=== PATIENT | male | born 1945 | race Hispanic/Latino ===

== ENCOUNTER → 2022-05-19 | Outpatient (CLI) | payer OTHER | END | disposition home or self-care (01) | LOC: RAH 09:37 | PROVIDERS: ATTEND Otolaryngology Plastic Surgery within the Head & Neck | DX: R13.10 Dysphagia, unspecified (principal); K21.9 Gastro-esophageal reflux disease without esophagitis | CPT/HCPCS: 74230; 92611 ==

== ENCOUNTER → 2022-07-01 | Outpatient (CLI) | payer OTHER | END | disposition home or self-care (01) | LOC: RAH 09:27 | PROVIDERS: ATTEND Otolaryngology Plastic Surgery within the Head & Neck | DX: R13.10 Dysphagia, unspecified (principal) | CPT/HCPCS: 74220 ==

== ENCOUNTER 2023-09-23 15:00 | Inpatient (IN) | payer OTHER ==
[~2023-09-23] VITALS: Ht 195.6 cm; Wt 91.6 kg
[2023-09-23 09:19] LABS: ADD UA MICROSCOPIC NO; APPEARANCE,URINE CLEAR (CLEAR); BILIRUBIN,URINE NEGATIVE (NEGATIVE); COLOR,URINE LIGHT-YELLOW (YELLOW); GLUCOSE, URINE (UA) NEGATIVE (NEGATIVE); KETONES,URINE NEGATIVE (NEGATIVE); LEUKOCYTE ESTERASE ,URINE NEGATIVE Leu/uL (NEGATIVE); NITRATE,URINE NEGATIVE (NEGATIVE); OCCULT BLOOD,URINE NEGATIVE (NEGATIVE); PROTEIN,URINE NEGATIVE (NEGATIVE); UROBILINOGEN,URINE 0.2 mg/dL (0.2-1.0)
[2023-09-23 09:30] LABS: INR 1.08 (0.85-1.15); PROTHROMBIN TIME 12.5 SEC (9.6-11.6)
[2023-09-23 09:32] LABS: PARTIAL THROMBOPLASTIN TIME 29.2 SEC (26.3-35.5)
[2023-09-23 10:19] VITALS: BP 138/80; PULSE 56; RESP 18
[~2023-09-23 15:00] MED LIST: ATOR40TA69 PO; TAMS-1 PO
[2023-09-26] VITALS (25 sets, daily range): BP systolic 90–147; BP diastolic 57–98; PULSE 48–71; RESP 14–20; O2SAT 95–98
[2023-09-26] MEDS ORDERED: TRANEXAMIC ACID 1000MG/10ML ONE ×2 (06:38→08:00)
[2023-09-26] MEDS ORDERED: ROPIVACAINE 0.5% 5MG/ML 30ML IJ ONE ×2 (06:38→07:13)
[2023-09-26] MEDS ORDERED: KETOROLAC 15MG/ML VIAL (15MG/ML) ONE ×2 (06:38→09:56)
[2023-09-26] MEDS ORDERED: KETOROLAC 30MG VIAL (30MG/ML) ONE (06:39)
[2023-09-26] MEDS ORDERED: LACTATED RINGERS 1000ML 1,000 ML IV ONE (06:52)
[2023-09-26] MEDS ORDERED: PROPOFOL 10 MG/ML 20ML VIAL IV ONE (07:10)
[2023-09-26] MEDS ORDERED: FENTANYL CITRATE PF 50 MCG/1 ML 2ML VIAL ONE ×2 (07:10→09:41)
[2023-09-26] MEDS ORDERED: MIDAZOLAM HCL 1 MG/ML 2ML VIAL ONE (07:11)
[2023-09-26] MEDS ORDERED: ONDANSETRON 4MG INJ ONE (07:11)
[2023-09-26] MEDS ORDERED: CEFAZOLIN SODIUM 2 GM VIAL ONE (07:11)
[2023-09-26] MEDS ORDERED: ROCURONIUM 10MG/1ML SYR 10 MG/ML ML ONE ×2 (07:11→08:16)
[2023-09-26] MEDS ORDERED: GLYCOPYRROLATE 1 MG/5 ML SYRINGE ONE (07:51)
[2023-09-26] MEDS ORDERED: MEPERIDINE-PF 25 MG/ML SYG ONE ×2 (09:27→10:03)
[2023-09-26] MEDS ORDERED: CYCLOBENZAPRINE HCL 10 MG TABLET PO PRN (09:30)
[2023-09-26] MEDS ORDERED: KCL 20 MEQ ERTAB PO PRN (09:30)
[2023-09-26] MEDS ORDERED: DiphenhydrAMINE HCL 50 MG/ML VIAL IVP PRN (09:30)
[2023-09-26] MEDS ORDERED: POTASSIUM CHLORIDE 10% ELIXIR 20 MEQ/15 ML UDCUP PO PRN (09:30)
[2023-09-26] MEDS ORDERED: POTASSIUM CHLORIDE 20MEQ/100ML 100 ML IV PRN (09:30)
[2023-09-26] MEDS ORDERED: ONDANSETRON 4MG INJ IVP PRN (09:30)
[2023-09-26] MEDS ORDERED: FERROUS FUMARATE 324 MG TABLET PO PRN (09:30)
[2023-09-26] MEDS ORDERED: CALCIUM CARB 500MG PO PRN (09:30)
[2023-09-26] MEDS ORDERED: NEOSTIGMINE 5MG/5ML SYR IV ONE (09:39)
[2023-09-26] MEDS: KETOROLAC 15MG/ML VIAL (15MG/ML) IV SCH ×2 (10:11→17:45)
[2023-09-26] MEDS: GABAPENTIN 100 MG CAPSULE PO SCH ×2 (13:45→19:44)
[2023-09-26] MEDS: HYDROCODONE/ACETAMINOPHEN 5/325 MG TAB PO PRN (13:49)
[2023-09-26] MEDS: CEFAZOLIN SODIUM 2 GM VIAL IVPB SCH ×2 (15:36→22:15)
[2023-09-26] MEDS: 0.9%NACL 1000ML 1,000 ML IV SCH ×2 (19:30→19:46)
[2023-09-26] MEDS: ATORVASTATIN 20 MG TABLET PO SCH (19:44)
[2023-09-26] MEDS: TAMSULOSIN HCL 0.4 MG CAP.ER.24H PO SCH (19:44)
[2023-09-26] MEDS: DOCUSATE SODIUM 100 MG CAP PO SCH (19:44)
[2023-09-27] VITALS (9 sets, daily range): BP systolic 103–138; BP diastolic 66–79; PULSE 65–74; RESP 14–20; O2SAT 94–96
[2023-09-27] MEDS: KETOROLAC 15MG/ML VIAL (15MG/ML) IV SCH (00:57)
[2023-09-27 05:39] LABS: HEMATOCRIT 36.5 % (42-54); MEAN CORPUSCULAR HEMOGLOBIN 30.9 pg (27.0-33.0); MEAN CORPUSCULAR HGB CONC 34.5 g/dL (32.0-36.0); MEAN CORPUSCULAR VOLUME 89.5 fL (79-99); RED BLOOD CELL COUNT(AUTO) 4.08 MIL/uL (4.50-6.20); RED CELL DISTRIBUTION WIDTH 12.8 % (11.0-15.5); WHITE BLOOD COUNT (AUTO) 7.9 K/uL (4.8-10.8)
[2023-09-27 05:55] LABS: CREATININE 1.4 mg/dL (0.5-1.5)
[2023-09-27] MEDS: TRAMADOL HCL 50 MG TABLET PO PRN ×2 (06:05→20:18)
[2023-09-27] MEDS: POLYETHYLENE GLYCOL 3350 17 GM POWD.PACK PO SCH (08:55)
[2023-09-27] MEDS: GABAPENTIN 100 MG CAPSULE PO SCH ×3 (08:55→20:18)
[2023-09-27] MEDS: DOCUSATE SODIUM 100 MG CAP PO SCH ×2 (08:55→20:17)
[2023-09-27] MEDS: HYDROCODONE/ACETAMINOPHEN 5/325 MG TAB PO PRN ×3 (08:55→23:07)
[2023-09-27] MEDS: ASPIRIN 325MG EC TAB PO SCH (08:55)
[2023-09-27] MEDS ORDERED: KETOROLAC 15MG/ML VIAL (15MG/ML) IV PRN (09:30)
[2023-09-27] MEDS: ATORVASTATIN 20 MG TABLET PO SCH (20:12)
[2023-09-27] MEDS: TAMSULOSIN HCL 0.4 MG CAP.ER.24H PO SCH (20:17)
[2023-09-28] MEDS: TRAMADOL HCL 50 MG TABLET PO PRN ×2 (02:41→20:08)
[2023-09-28 03:00] VITALS: BP 94/52; PULSE 66; RESP 18
[2023-09-28] MEDS: HYDROCODONE/ACETAMINOPHEN 5/325 MG TAB PO PRN ×3 (05:05→17:49)
[2023-09-28] MEDS: DOCUSATE SODIUM 100 MG CAP PO SCH ×2 (07:50→20:07)
[2023-09-28] MEDS: POLYETHYLENE GLYCOL 3350 17 GM POWD.PACK PO SCH (07:51)
[2023-09-28] MEDS: ASPIRIN 325MG EC TAB PO SCH (07:51)
[2023-09-28] MEDS: GABAPENTIN 100 MG CAPSULE PO SCH ×3 (07:51→20:08)
[2023-09-28 07:59] VITALS: O2SAT 98
[2023-09-28 08:00] VITALS: BP 95/64; PULSE 91; RESP 18
[2023-09-28 12:00] VITALS: BP 116/71; PULSE 65; RESP 18
[2023-09-28 16:00] VITALS: BP 128/85; PULSE 84; RESP 18
[2023-09-28 20:00] VITALS: BP 107/62; PULSE 71; RESP 18; O2SAT 96
[2023-09-28] MEDS: ATORVASTATIN 20 MG TABLET PO SCH (20:08)
[2023-09-28] MEDS: TAMSULOSIN HCL 0.4 MG CAP.ER.24H PO SCH (20:08)
[2023-09-29] VITALS: BP 120/69; PULSE 68; RESP 18
[2023-09-29] MEDS: HYDROCODONE/ACETAMINOPHEN 5/325 MG TAB PO PRN ×2 (01:20→09:08)
[2023-09-29 04:00] VITALS: BP 108/64; PULSE 64; RESP 18
[2023-09-29] MEDS: TRAMADOL HCL 50 MG TABLET PO PRN (04:58)
[2023-09-29 08:00] VITALS: BP 104/66; PULSE 89; RESP 18
[2023-09-29] MEDS: DOCUSATE SODIUM 100 MG CAP PO SCH (09:03)
[2023-09-29] MEDS: POLYETHYLENE GLYCOL 3350 17 GM POWD.PACK PO SCH (09:03)
[2023-09-29] MEDS: ASPIRIN 325MG EC TAB PO SCH (09:04)
[2023-09-29] MEDS: GABAPENTIN 100 MG CAPSULE PO SCH (09:05)
[2023-09-29] MEDS ORDERED: BISACODYL 10 MG SUPP.RECT RC PRN (09:30)
[2023-09-29] MEDS ORDERED: CYCL-309 PO (10:49)
[2023-09-29] MEDS ORDERED: ASPI-891 PO (10:49)
[2023-09-29] MEDS ORDERED: HYDR-4060 PO (10:49)
[2023-09-29] MEDS ORDERED: DOCU-116 PO (10:49)
[2023-09-29] MEDS ORDERED: GABA100C PO (10:49)
[2023-09-29 11:43] VITALS: BP 109/75; PULSE 75; RESP 18
[2023-09-29 11:54] VITALS: O2SAT 96
== END 2023-09-29 14:55 | disposition home health service (06) | DRG 470 ==
LOC: DAHIP 09-26 05:38 → 4CH 09-26 10:45 → EDSTATUS 09-26 15:00
PROVIDERS: ADMIT Student in an Organized Health Care Education/Training Program; ATTEND Student in an Organized Health Care Education/Training Program
PROC: 0SRD069 Replacement of Left Knee Joint with Oxidized Zirconium on Polyethylene Synthetic Substitute, Cemented, Open Approach (ICD-10-PCS; principal; 2023-09-26 07:57)
DX: M17.12 Unilateral primary osteoarthritis, left knee (principal); D62 Acute posthemorrhagic anemia; G89.29 Other chronic pain
CPT/HCPCS: 36415; 73560; 80048; 81003; 84134; 85027; 85610; 85730; 86140; 87088; 87641; G0378; J1885; J2175; J2250; J2405; J2704; J2710; J2795; J3010; J3490; J7120; A4215; A4221; A4222; A4223; A4649; A4663; A6255; C1713; C1776; G0168; J0690

== ENCOUNTER → 2025-07-17 | Outpatient (CLI) | payer OTHER ==
[~2025-07-17] MED LIST changes: +ASPI-891 PO; +CYCL-309 PO; +DOCU-116 PO; +GABA100C PO; +HYDR-4060 PO; -TAMS-1 PO; +TAMS-55 PO
[2025-07-17 11:17] LABS: PLATELET COUNT (AUTO) 270 K/uL (130-400)
[2025-07-17 14:53] LABS: PLATELET FUNCTION ANALYSIS EPI 74 SEC (55-192)
[2025-07-17 14:54] LABS: PFA INTERPRETATION PFA INTERPRETATION
== END | disposition home or self-care (01) ==
LOC: LAB 10:07
PROVIDERS: ATTEND Internal Medicine Medical Oncology
DX: D68.9 Coagulation defect, unspecified (principal)
CPT/HCPCS: 36415; 85576

== ENCOUNTER 2025-08-02 05:48 | Day surgery (SDC) | payer OTHER ==
[2025-07-31 12:51] LABS: IMMATURE GRANULOCYTE ABSOLUTE 0.01 K/uL (0-1); NUCLEATED RED BLOOD CELLS 0.0 % (0.0-0.19); PLATELET COUNT (AUTO) 218 K/uL (130-400); RED BLOOD CELL COUNT(AUTO) 4.88 MIL/uL (4.50-6.20); RED CELL DISTRIBUTION WIDTH 13.0 % (11.0-15.5); WHITE BLOOD COUNT (AUTO) 4.4 K/uL (4.8-10.8)
[2025-07-31 12:58] LABS: CREATININE 1.2 mg/dL (0.5-1.3); GLOMERULAR FILTR. RATE CALC 62.0 mL/min (>90); GLUCOSE,RANDOM 108.0 mg/dL (70-105); SODIUM SERUM 141.0 mmol/L (136-145); UREA NITROGEN, BLOOD 25.0 mg/dL (7-18)
[2025-07-31 13:02] LABS: INR 1.14 (0.85-1.15)
[2025-07-31 13:07] VITALS: BP 106/70; PULSE 58; RESP 14; TEMP 97.5
--- NOTE | 2025-07-31 13:28 | EKG ---
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
[~2025-08-02] VITALS: Ht 194.3 cm; Wt 88.5 kg
[2025-08-02] VITALS (13 sets, daily range): BP systolic 114–124; BP diastolic 60–74; PULSE 48–66; RESP 15–18; TEMP 97.3–97.8
[~2025-08-02 05:48] MED LIST changes: -ASPI-891 PO; -CYCL-309 PO; -DOCU-116 PO; +FOLI0.8T22 PO; -GABA100C PO; -HYDR-4060 PO; +vitamin d3 PO
[2025-08-02] MEDS ORDERED: LACTATED RINGERS 1000ML 1,000 ML IV ONE (06:36)
[2025-08-02] MEDS ORDERED: LIDOCAINE PF 100MG/5ML (2%) SYRINGE 5ML ONE (07:26)
[2025-08-02] MEDS ORDERED: NEOSTIGMINE METHYLSULFATE 1MG/ML IV ONE (07:26)
[2025-08-02] MEDS ORDERED: SUCCINYLCHOLINE CHLORIDE 20 MG/ML 10 ML VIAL ONE (07:26)
[2025-08-02] MEDS ORDERED: GLYCOPYRROLATE 0.2 MG/ML 5 ML VIAL ONE (07:26)
[2025-08-02] MEDS ORDERED: MIDAZOLAM HCL 1 MG/ML 2ML VIAL ONE (07:32)
[2025-08-02] MEDS ORDERED: FAMOTIDINE 20MG VIAL IV ONE (07:48)
[2025-08-02] MEDS ORDERED: SUGAMMADEX SODIUM 200 MG/2 ML VIAL IV ONE (07:49)
[2025-08-02] MEDS ORDERED: ACET-2079 PO (10:01)
--- NOTE | 2025-08-02 14:32 | OP ---
Operative Note: DATE OF PROCEDURE: 08/02/25 SURGEON: JANEL PACHECO MD SIZE MAKER: Sherie Dotson ANESTHESIA: General ANESTHESIOLOGIST/COMPUTER OPERATIONS TECHNICIAN: Yifan Simons CRNA PREOPERATIVE DIAGNOSIS: Left patellar clunk syndrome POSTOPERATIVE DIAGNOSIS: Left patellar clunk syndrome PROCEDURE: Left knee arthroscopy with partial synovectomy ESTIMATED BLOOD LOSS: 5 cc INDICATIONS: 79-year-old male status post left total knee arthroplasty a proximally one year ago who did well initially. More recently he presented to the clinic with complaints of the painful pop within the knee with range motion. On examination he was found to have a patellar clunk, left knee. After discussion of the risks, benefits, and alternatives, the patient voluntarily agreed to undergo the aforementioned procedure. DESCRIPTION OF PROCEDURE: Patient was properly identified in the preoperative holding area. Surgical site marking was verified and surgery consent reviewed. The patient was then taken to the operating room and placed in supine position on the OR table. After induction of general anesthesia, preoperative antibiotics were given, all bony prominences were well-padded, and a well padded tourniquet was applied but not inflated at this time. The [left lower] extremity was then prepped and draped in usual sterile fashion. Surgical timeout was done verifying correct surgery, side, site, and location to be performed. We exsanguinated leg using Esmarch and inflated the tourniquet to 250 mm Hg. We then began the procedure by making a standard anterolateral portal with an 11 blade and inserted our arthroscope through here. We made our anterior medial portal under direct visualization using spinal needle for localization. We then inserted our probe and performed our diagnostic arthroscopy with the above mentioned findings. At this point we inserted shaver device and performed our the synovectomy of the hypertrophic tissue adjacent to the patellar component along both the medial and lateral side as well as proximal and distal pole. For completeness we swapped portals placing the camera in the medial portal to allow for further debridement of the tissue laterally with the shaver device. Once we were happy with our partial synovectomy, we then thoroughly irrigated out the wound with normal saline. We removed as much fluid from the knee as possible. We then injected local anesthetic within the capsule of the joint as well as around the portal sites. Our portal sites were then repaired using 3-0 nylon in simple fashion. Sterile dressing was then applied consisting of Xeroform, 4 x 4's, ABD, cast padding, and an Jewel wrap. The patient was then awakened from anesthesia and taken to recovery room in stable condition. JANEL PACHECO MD Aug 02, 2025 14:32
== END 2025-08-02 11:15 | disposition home or self-care (01) ==
LOC: DAH 05:48
PROVIDERS: ATTEND Student in an Organized Health Care Education/Training Program
DX: M25.862 Other specified joint disorders, left knee (principal); M23.8X2 Other internal derangements of left knee; M19.90 Unspecified osteoarthritis, unspecified site; Z79.01 Long term (current) use of anticoagulants; Z79.82 Long term (current) use of aspirin; Z82.49 Family history of ischemic heart disease and other diseases of the circulatory system; Z79.899 Other long term (current) drug therapy; Z98.890 Other specified postprocedural states
CPT/HCPCS: 80048; 85025; 85610; 85730; 36415; 93005; 29876; A4223 ×2; A4663; J7120 ×2; J3490 ×4; J3010; J1100; J0330; J0665 ×2; J2003; J2250; J2704; J2405; J1885; J2710; J0690 ×2; A6223; A4649 ×2; A4930; A5120; A4215; A4213; A4222; A4221; A4216; A6450